=== PATIENT | male | born 1980 | race Two or more races ===

== ENCOUNTER 2023-10-01 07:13 | Emergency (ER) | payer MEDICAID, OTHER ==
[~2023-10-01] VITALS: Ht 172.7 cm; Wt 88.8 kg
[2023-10-01] MEDS ORDERED: PRED20TA2 PO (07:56)
[2023-10-01] MEDS ORDERED: CYCL-837 PO (07:56)
[2023-10-01 07:58] VITALS: BP 124/73; PULSE 97; RESP 17; TEMP 98; O2SAT 97
== END 2023-10-01 08:05 | disposition home or self-care (01) ==
LOC: ER 07:13
DX: L23.9 Allergic contact dermatitis, unspecified cause (principal); M54.50 Low back pain, unspecified; Z88.6 Allergy status to analgesic agent

== ENCOUNTER 2023-11-06 09:02 | Emergency (ER) | payer MEDICAID ==
[~2023-11-06] VITALS: Ht 172.7 cm; Wt 80.0 kg
[~2023-11-06 09:02] MED LIST: CYCL-837 PO; PRED20TA2 PO
[2023-11-06 11:57] VITALS: BP 113/74; PULSE 88; RESP 18; TEMP 97.8; O2SAT 97
[2023-11-06] MEDS ORDERED: MELO7.5T7 PO (12:05)
[2023-11-06] MEDS ORDERED: LIDO5DIS21 TOP (12:05)
[2023-11-06] MEDS ORDERED: TRAZ-181 PO (12:05)
== END 2023-11-06 12:10 | disposition home or self-care (01) ==
LOC: ER 09:02
DX: M54.50 Low back pain, unspecified (principal); Z72.820 Sleep deprivation; Z88.8 Allergy status to other drugs, medicaments and biological substances; Z79.899 Other long term (current) drug therapy

== ENCOUNTER 2024-06-22 07:28 | Emergency (ER) | payer SELFPAY ==
[~2024-06-22] VITALS: Ht 170.2 cm; Wt 72.5 kg
[~2024-06-22 07:28] MED LIST changes: +LIDO5DIS21 TOP; +MELO7.5T7 PO; +TRAZ-181 PO
--- NOTE | 2024-06-22 08:01 | ED.PDOC ---
History of Present Illness HPI Comments 44 y.o male presents to the ED for a chief complaint of generalized weakness x1 month associated with poor appetite x 2 weeks. Patient reports increased weakness now, states he wants to get checked out as this is new onset symptoms. Patient denies any chest pain, nausea, vomiting, palpitations, fever, chills, abdominal pain. Patient denies any medical history. Chief Complaint: General Weakness Time Seen by MD: 07:52 Primary Care Provider: NONE Reviewed Notes: Nurses Notes, Medications, Allergies Allergies: Coded Allergies: Acetaminophen (Verified Allergy, Unknown, 10/01/23) Home Meds Active Scripts Lidocaine (LIDODERM 5% TOPICAL PATCH) 1 Patch Ph, 1 PATCH TOP DAILY for 30 Days, #30 PATCH 0 Refills Prov:CANDY DIEZ NP 11/06/23 Trazodone HCl (Trazodone Hydrochloride) 50 Mg Tab, 50 MG PO QHSP PRN for 30 Days, #30 TAB 1 Refill Prov:CANDY DIEZ NP 11/06/23 Meloxicam (Meloxicam) 7.5 Mg Tab, 1 TAB PO DAILYP PRN for 30 Days, #30 TAB 0 Refills Prov:CANDY DIEZ NP 11/06/23 Prednisone (Prednisone) 20 Mg Tab, 20 MG PO DAILY for 5 Days, #5 MG Prov:NIURKA KATZ 10/01/23 Cyclobenzaprine Hcl (Cyclobenzaprine Hcl) 5 Mg Tab, 1 TAB PO TID PRN, #30 TAB Prov:NIURKA KATZ 10/01/23 Information Source: Patient Mode of Arrival: Ambulatory Severity: Moderate Timing: Months (1) Duration: Since onset Past Medical History PAST MEDICAL HISTORY: Denies Surgical History: Denies all surgeries Family History Family History: Reviewed,noncontributory to illness, No family hx of Cancer, No family hx of DM, No family hx of Heart eddy, No family hx of HTN, No family hx ofKidney eddy, No family hx of Liver eddy, No family hx of Lung eddy, No family hx of Stroke Social History Smoker: Non-Smoker Alcohol: Denies ETOH Use Drugs: Denies Drug Use Lives In: Home Constitutional: reports: weakness; denies: chills, diaphoresis, fatigue, fever, malaise, sweats, others Respiratory: denies: cough, hemoptysis, orthopnea, SOB at rest, shortness of breath, SOB with excertion, stridor, wheezing, others Cardiovascular: denies: chest pain, dizzy spells, diaphoresis, Dyspnea on exertion, edema, irregular heart beat, left arm pain, lightheadedness, palpitations, PND, syncope, others Gastrointestinal: reports: poor appetite; denies: abdomen distended, abdominal pain, blood streaked bowels, constipated, diarrhea, dysphagia, difficulty s wallowing, hematemesis, melena, nausea, poor fluid intake, rectal bleeding, rectal pain, vomiting, others Genitourinary: denies: burning, dysuria, flank pain, frequency, hematuria, incontinence, penile discharge, penile sore, pain, testicle pain, testicle swelling, urgency, others Neurological: denies: dizziness, fainting, headache, left sided numbness, left sided weakness, numbness, paresthesia, pre-existing deficit, right sided numbness, right sided weakness, seizure, speech problems, tingling, tremors, weakness, others Musculoskeletal: denies: back pain, gout, joint pain, joint swelling, muscle pain, muscle stiffness, neck pain, others Integumetry: denies: bruises, change in color, change in hair/nails, dryness, laceration, lesions, lumps, rash, wounds, others Allergic/Immunocompromised: denies: Difficulty Healing, Frequent Infections, Hives, Itching, others Hematologic/Lymphatic: denies: anemia, blood clots, easy bleeding, easy bruising, swollen glands, others Endocrine: denies: excessive hunger, excessive sweating, excessive thirst, excessive urination, flushing, intolerance to cold, intolerance to heat, unexplained weight gain, unexplained weight loss, others Psychiatric: denies: anxiety, bipolar disorder, depression, hopeless, panic disorder, schizophrenia, sleepless, suicidal, others All Other Systems: Reviewed and Negative Physical Exam General Appearance: Moderate Distress HEENT: Normal ENT Inspection, Pharynx Normal, TMs Normal Neck: Full Range of Motion, Non-Tender, Normal, Normal Inspection Respiratory: Chest Non-Tender, Lungs Clear, No Accessory Muscle Use, No Respiratory Distress, Normal Breath Sounds Cardiovascular: No Edema, No JVD, No Murmur, No Gallop, Normal Peripheral Pulses, Regular Rate/Rhythm Breast Exam: Deferred Gastrointestinal: No Organomegaly, Non Tender, No Pulsatile Mass, Normal Bowel Sounds, Soft Genitalia: Deferred Pelvic: Deferred Rectal: Deferred Extremities: No calf tenderness, Normal capillary refill, Normal inspection, Normal range of motion, Non-tender, No pedal edema Musculoskeletal : Apperance: Normal Neurologic: Alert, condenser setter II-XII nml as Tested, No Motor Deficits, Normal Affect, Normal Mood, No Sensory Deficits Cerebellar Function: Normal Reflexes: Normal Skin: Dry, Normal Color, Warm Peripheral Pulses: 3+ Radial (R), 3+ Radial (L) Lymphatic: No Adenopathy Was a procedure done? Was a procedure done?: No Differential Dx Considerations may include: Dehydration, Electrolyte imbalance, Guillain-Liu syndrome, Viral Syndrome X-Ray, Labs, Meds, VS Vital Signs Date Time Temp Pulse Resp B/P (MAP) Pulse Ox O2 Delivery O2 Flow Rate FiO2 06/22/24 08:03 Room Air* 0 21 06/22/24 07:39 98.0 88 16 126/79 (95) 98 98.0 Lab Test 06/22/24 08:20 06/22/24 08:00 Range/Units Urine Color Yellow Yellow Urine Clarity Turbid H Clear Urine pH 5.5 5.0-9.0 Urine Specific [place] 1.034 1.001-1.035 Urine Protein Trace H Negative Urine Ketones Negative Negative Urine Blood Negative Negative /uL Urine Nitrite Negative Negative Urine Bilirubin Negative Negative Urine Urobilinogen Normal Negative mg/dL Urine Leukocyte Esterase Negative Negative /uL Urine RBC 1 0 - 3 /hpf Urine Microscopic WBC 2 0-3 /HPF Urine Squamous Epithelial Cells None seen <5 /hpf Urine Bacteria None seen None Seen /hpf Urine Mucus Many None Seen Urine Glucose Normal Normal mg/dL White Blood Count 4.8 4.4-10.8 10^3/uL Red Blood Count 4.47 L 4.5-5.90 10^6/uL Hemoglobin 14.2 13.5-17.5 g/dL Hematocrit 40.8 L 41.0-53.0 % Mean Corpuscular Volume 91.4 80.0-100.0 fL Mean Corpuscular Hemoglobin 31.8 28.0-32.0 pg Mean Corpuscular Hemoglobin Concent 34.8 32.0-36.0 g/dL Red Cell Distribution Width 12.9 11.8-14.3 % Platelet Count 216 140-450 10^3/uL Mean Platelet Volume 7.2 6.9-10.8 fL Neutrophils (%) (Auto) 44.2 37.0-80.0 % Lymphocytes (%) (Auto) 41.7 10.0-50.0 % Monocytes (%) (Auto) 7.1 0.0-12.0 % Eosinophils (%) (Auto) 5.5 0.0-7.0 % Basophils (%) (Auto) 1.5 0.0-2.0 % Neutrophils # (Auto) 2.1 1.6-8.6 10 ^3/uL Lymphocytes # (Auto) 2.0 0.4-5.4 10 ^3/uL Monocytes # (Auto) 0.3 0-1.3 10 ^3/uL Eosinophils # (Auto) 0.3 0-0.8 10 ^3/uL Basophils # (Auto) 0.1 0-0.2 10 ^3/uL Nucleated Red Blood Cells 0.2 % Sodium Level 140 136-145 mmol/L Potassium Level 3.8 3.5-5.1 mmol/L Chloride Level 109 H 98-107 mmol/L Carbon Dioxide Level 27 20-31 mmol/L Anion Gap 4 L 5-15 Blood Urea Nitrogen 18 9-23 mg/dL Creatinine 1.04 0.700-1.30 mg/dL Glomerular Filtration Rate Calc 91 >90 mL/min BUN/Creatinine Ratio 17.3 10.0-20.0 Serum Glucose 90 74-106 mg/dL Calcium Level 10.0 8.7-10.4 mg/dL Patient alert. Generalized symptoms. No acute process. Vitals stable. Abdomen is soft nontender. WBC within normal limits. Hemoglobin within normal limits. Physical examination pristine. Reviewed his history. Explained to the patient. Was told to follow up with his primary care physician. Was told to come back if there is any problem. Time of 1ST Reevaluation: 07:58 Reevaluation 1ST: Improved Patient Education/Counseling: Diagnosis, Treatment, Prognosis Family Education/Counseling: No Family Present Departure 1 Departure Time of Disposition: 10:03 Impression: Primary Impression: Musculoskeletal disease Additional Impressions: Gastritis Qualified Codes: K29.00 - Acute gastritis without bleeding Anxiety Disposition: 01 HOME / SELF CARE / HOMELESS Condition: Good Discharged With: Self Critical Care Note Critical Care Time?: No Stability Stability form required: No I personally scribed for ERASTO LYONS MD ([facility] on 06/22/24 at 08:01. Electronically submitted by Delmy Clarke ([facility]). ERASTO LYONS MD Jun 22, 2024 08:01
[2024-06-22 08:20] LABS: Urine Bacteria None Seen /hpf (None Seen)
[2024-06-22 08:21] LABS: Anion Gap 4 (5-15); Basophils # (auto) 0.1 10 ^3/uL (0-0.2); Basophils % (auto) 1.5 % (0.0-2.0); Carbon Dioxide 27 mmol/L (20-31); Eosinophils # (auto) 0.3 10 ^3/uL (0-0.8); Eosinophils % (auto) 5.5 % (0.0-7.0); Hematocrit 40.8 % (41.0-53.0); Hemoglobin 14.2 g/dL (13.5-17.5); Lymphocytes % (auto) 41.7 % (10.0-50.0); Mean Corpuscular Hemoglobin 31.8 pg (28.0-32.0); Mean Corpuscular Hgb Conc. 34.8 g/dL (32.0-36.0); Mean Corpuscular Volume 91.4 fL (80.0-100.0); Monocytes # (auto) 0.3 10 ^3/uL (0-1.3); Monocytes % (auto) 7.1 % (0.0-12.0); Neutrophils # (auto) 2.1 10 ^3/uL (1.6-8.6); Neutrophils % (auto) 44.2 % (37.0-80.0); Nucleated Red Blood Cells % 0.2 %; Platelet Count (auto) 216 10^3/uL (140-450); Potassium 3.8 mmol/L (3.5-5.1); Red Blood Cells 4.47 10^6/uL (4.5-5.90); Red Cell Distribution Width 12.9 % (11.8-14.3); Sodium 140 mmol/L (136-145); White Blood Cell 4.8 10^3/uL (4.4-10.8)
[2024-06-22 08:27] LABS: BUN/Creatinine Ratio 17.3 (10.0-20.0); Blood Urea Nitrogen 18 mg/dL (9-23); Glucose 90 mg/dL (74-106)
[2024-06-22 08:34] LABS: Chloride 109 mmol/L (98-107)
[2024-06-22 08:40] LABS: Urine Blood Negative /uL (Negative); Urine Clarity Turbid (Clear); Urine Color Yellow (Yellow); Urine Mucus MANY (None Seen); Urine Protein, UAD TRACE (Negative); Urine Specific Gravity 1.034 (1.001-1.035); Urine Squamous Epithelial Cell None Seen /hpf (<5); Urine Urobilinogen Normal (Negative); Urine WBC 2 /HPF (0-3); Urine pH 5.5 (5.0-9.0)
[2024-06-22 10:24] VITALS: BP 117/70; PULSE 95; RESP 17; TEMP 98.3; O2SAT 95
== END 2024-06-22 10:28 | disposition home or self-care (01) ==
LOC: ER 07:28
DX: M79.9 Soft tissue disorder, unspecified (principal); K29.70 Gastritis, unspecified, without bleeding; F41.9 Anxiety disorder, unspecified; Z79.52 Long term (current) use of systemic steroids; Z79.899 Other long term (current) drug therapy
CPT/HCPCS: 36415; 80048; 81001; 85025